=== PATIENT | male | born 1980 | race Caucasian/White ===

== ENCOUNTER 2023-11-28 10:10 | Inpatient (IN) | payer OTHER ==
[~2023-11-28] VITALS: Ht 172.7 cm; Wt 107.5 kg
[2023-11-28 12:27] LABS: EOSINOPHILS % (AUTO) 2.4 % (1.0-6.0); HEMATOCRIT 50.9 % (41-53); HEMOGLOBIN 16.8 g/dL (13.5-17.5); LYMPHOCYTES # (AUTO) 1.8 K/uL (1.0-4.8); MONOCYTES # (AUTO) 0.7 K/uL (0.1-1.0); NEUTROPHILS # (AUTO) 6.8 K/uL (1.8-7.7); WHITE BLOOD COUNT (AUTO) 9.6 K/uL (4.5-11.0)
[2023-11-28 12:29] LABS: BASOPHILS % (AUTO) 1.1 % (0.0-2.0); LYMPHOCYTES % (AUTO) 18.5 % (22.0-44.0); MEAN CORPUSCULAR HEMOGLOBIN 30.1 pg (26.0-34.0); MEAN CORPUSCULAR HGB CONC 33.1 G/dL (31.0-37.0); MEAN CORPUSCULAR VOLUME 91 fL (80-100); MONOCYTES % (AUTO) 7.2 % (2.0-9.0); NEUTROPHILS % (AUTO) 70.8 % (40.0-70.0); PLATELET COUNT (AUTO) 269 K/uL (150-450); RED CELL DISTRIBUTION WIDTH 13.8 % (11.5-14.5)
[2023-11-28 12:31] LABS: RBC MORPHOLOGY COMMENT NORMAL RBC MORPH
[2023-11-28 12:35] LABS: CALCIUM, TOTAL 9.1 mg/dL (8.8-10.5); CREATININE 1.71 mg/dL (0.60-1.30); POTASSIUM 4.3 mmol/L (3.5-5.1)
[2023-11-28 12:39] LABS: PROTHROMBIN TIME 10.6 SEC (9.4-11.6)
[2023-11-28 12:43] LABS: TROPONIN I-HIGH SENSITIVITY 20 ng/L (<76)
[2023-11-28 13:01] LABS: ALBUMIN 3.5 g/dL (3.4-5.0); BILIRUBIN,TOTAL 0.8 mg/dL (0.1-1.0); TOTAL PROTEIN, SERUM 7.5 g/dL (6.4-8.2)
[2023-11-28] MEDS: HydrALAZINE HCL 20 MG/ML VIAL IVP ONE (13:36)
[2023-11-28] MEDS: SODIUM CHLORIDE 0.9% 1,000 ML IV ONE (13:36)
[2023-11-28] MEDS: BISOPROLOL FUMARATE 5 MG TABLET PO ONE (14:11)
[2023-11-28] MEDS ORDERED: ONDANSETRON HCL 4 MG/2 ML VIAL IVP PRN (15:00)
[2023-11-28] MEDS: NITROGLYCERIN 2% (1 GM=INCH) OINTMENT PACKET TP SCH (15:39)
[2023-11-28] MEDS: AmLODIPine BESYLATE 10 MG TABLET PO ONE (15:39)
[2023-11-28] MEDS: HEPARIN SODIUM,PORCINE 5,000 UNITS/ML VIAL SQ SCH (15:41)
[2023-11-28 16:07] LABS: APPEARANCE,URINE CLEAR (CLEAR); BILIRUBIN,URINE NEGATIVE (NEGATIVE); COLOR,URINE LIGHT YELLOW (YELLOW); GLUCOSE, URINE (UA) NEGATIVE (NEGATIVE); KETONES,URINE NEGATIVE (NEGATIVE); LEUKOCYTE ESTERASE ,URINE NEGATIVE (NEGATIVE); NITRATE,URINE NEGATIVE (NEGATIVE); OCCULT BLOOD,URINE TRACE (NEGATIVE); PH,URINE 5.5 (5.0-8.0); PROTEIN,URINE 30-70 mg/dL (NEGATIVE); UROBILINOGEN,URINE <=1.0 mg/dL (<=1.0)
[2023-11-28 16:09] LABS: CREATININE,URINE RANDOM 164.7 mg/dL (30.0-125.0)
[2023-11-28 16:20] LABS: BACTERIA,URINE Few /HPF (None Seen); RBC,URINE 0-2 /HPF (0-2); SQUAMOUS EPITHELIAL CELL,UR Rare /LPF (None Seen); WBC,URINE 0-2 /HPF (0-5)
[2023-11-28] MEDS: HydrALAZINE HCL 20 MG/ML VIAL IVP PRN (16:52)
[2023-11-28 17:31] VITALS: BP 154/94; PULSE 60; RESP 19; TEMP 97.9; O2SAT 98
[2023-11-28 17:50] LABS: TROPONIN I-HIGH SENSITIVITY 19 ng/L (<76)
[2023-11-28 20:07] VITALS: BP 165/83; PULSE 61; RESP 19; TEMP 97.9; O2SAT 97
[2023-11-28] MEDS: DOCUSATE SODIUM 100 MG CAPSULE PO SCH (20:56)
[2023-11-28] MEDS: ACETAMINOPHEN 325 MG TABLET PO PRN (20:56)
[2023-11-28 22:11] VITALS: BP 145/75; PULSE 61; RESP 18; TEMP 97.9; O2SAT 97
[2023-11-28 23:16] VITALS: BP 155/84; PULSE 69; RESP 18; TEMP 98; O2SAT 95
[2023-11-28 23:54] LABS: TROPONIN I-HIGH SENSITIVITY 13 ng/L (<76)
[2023-11-29] VITALS (7 sets, daily range): BP systolic 140–196; BP diastolic 80–104; PULSE 64–86; RESP 18–19; TEMP 97.7–98.2; O2SAT 96–99
[2023-11-29 06:58] LABS: BASOPHILS % (AUTO) 0.6 % (0.0-2.0); EOSINOPHILS % (AUTO) 1.7 % (1.0-6.0); HEMATOCRIT 49.7 % (41-53); HEMOGLOBIN 16.6 g/dL (13.5-17.5); LYMPHOCYTES # (AUTO) 1.7 K/uL (1.0-4.8); MEAN CORPUSCULAR HEMOGLOBIN 30.2 pg (26.0-34.0); MEAN CORPUSCULAR HGB CONC 33.3 G/dL (31.0-37.0); MEAN CORPUSCULAR VOLUME 91 fL (80-100); MONOCYTES # (AUTO) 0.7 K/uL (0.1-1.0); NEUTROPHILS # (AUTO) 6.8 K/uL (1.8-7.7); NEUTROPHILS % (AUTO) 72.7 % (40.0-70.0); PLATELET COUNT (AUTO) 259 K/uL (150-450); RED BLOOD CELL COUNT(AUTO) 5.48 MIL/uL (4.50-5.90); RED CELL DISTRIBUTION WIDTH 13.6 % (11.5-14.5); WHITE BLOOD COUNT (AUTO) 9.4 K/uL (4.5-11.0)
[2023-11-29 07:05] LABS: CALCIUM, TOTAL 8.2 mg/dL (8.8-10.5); CREATININE 1.58 mg/dL (0.60-1.30); MAGNESIUM 1.9 mg/dL (1.80-2.40); POTASSIUM 3.5 mmol/L (3.5-5.1)
[2023-11-29] MEDS: AmLODIPine BESYLATE 10 MG TABLET PO SCH (08:45)
[2023-11-29] MEDS: POTASSIUM CHLORIDE 10 MEQ ER TABLET PO ONE (12:36)
[2023-11-29] MEDS: HydrALAZINE HCL 20 MG/ML VIAL IVP PRN (23:28)
[2023-11-30] VITALS (7 sets, daily range): BP systolic 151–180; BP diastolic 84–99; PULSE 73–89; RESP 17–18; TEMP 97.8–98.4; O2SAT 95–99
[2023-11-30 07:00] LABS: CREATININE 1.49 mg/dL (0.60-1.30); POTASSIUM 4.1 mmol/L (3.5-5.1)
[2023-11-30] MEDS: LOSARTAN POTASSIUM 25 MG TABLET PO SCH (08:59)
[2023-11-30] MEDS: CARVEDILOL 6.25 MG TABLET PO SCH (08:59)
[2023-12-01 00:10] VITALS: BP 144/89; PULSE 88; RESP 18; TEMP 97.9; O2SAT 94
[2023-12-01 00:12] LABS: AMPHET/METH SCREEN,URINE NEGATIVE (NEGATIVE); BARBITURATE SCREEN, URINE NEGATIVE (NEGATIVE); BENZODIAZEPINES SCREEN,URINE NEGATIVE (NEGATIVE); CANNABINOID SCREEN,URINE NEGATIVE (NEGATIVE); COCAINE SCREEN,URINE NEGATIVE (NEGATIVE); METHADONE SCREEN, URINE NEGATIVE (NEGATIVE); OPIATE SCREEN,URINE NEGATIVE (NEGATIVE); PHENCYCLIDINE SCREEN,URINE NEGATIVE (NEGATIVE)
[2023-12-01 00:13] LABS: ALCOHOL, URINE DRUG SCREEN NEGATIVE (NEGATIVE)
[2023-12-01 04:00] VITALS: BP 155/95; PULSE 81; RESP 18; TEMP 98.2; O2SAT 96
[2023-12-01 07:41] VITALS: BP 165/91; PULSE 74; RESP 18; TEMP 98.4; O2SAT 98
[2023-12-01] MEDS ORDERED: CARV6 PO (11:09)
[2023-12-01] MEDS ORDERED: AMLO-258 PO (11:09)
[2023-12-01] MEDS ORDERED: LOSA-381 PO (11:11)
[2023-12-01 11:36] VITALS: BP 144/75; PULSE 79; RESP 18; TEMP 97.7; O2SAT 98
== END 2023-12-01 12:44 | DRG 305 ==
LOC: EMS 10:17 → EDH 14:51 → 5S 17:58
PROVIDERS: ADMIT Internal Medicine; ATTEND Internal Medicine
DX: I16.1 Hypertensive emergency (principal); N17.9 Acute kidney failure, unspecified; M62.82 Rhabdomyolysis; I12.9 Hypertensive chronic kidney disease with stage 1 through stage 4 chronic kidney disease, or unspecified chronic kidney disease; N18.9 Chronic kidney disease, unspecified; Z79.899 Other long term (current) drug therapy
CPT/HCPCS: 71045; 76770; 80048; 80053; 80307; 81001; 82550; 82570; 83735; 83880; 84300; 84484; 85025; 85610; 85730; 93005; 93306; 99285; J0360; J1644; J7030; 36415-L1; 36415-TC